=== PATIENT | male | born 1980 | race Caucasian/White ===

== ENCOUNTER 2022-07-16 10:39 | Outpatient (REF) | payer BC, SELFPAY ==
[2022-07-16 10:57] LABS: MANUAL DIFF FLAG NO
[2022-07-16 11:13] LABS: Basophils Percent Auto 0.6 % (0-2); Eosinophils Percent Auto 0.4 % (0-4); Hematocrit 49.2 % (42.0-52.0); Imm Gran Abs Auto 0.01 X10*3/uL (0.00-0.03); Imm Gran Pct Auto 0.2 % (0.0-0.4); Lymphocytes Absolute Auto 1.7 X10*3/uL (1.2-4.9); Lymphocytes Percent Auto 30.8 % (20-40); Mean Corpuscular HGB Conc 32.5 g/dl (31.0-36.0); Mean Corpuscular Hemoglobin 28.9 pg (27.0-33.0); Mean Platelet Volume 8.9 fL (9.4-12.4); Monocytes Absolute Auto 0.4 X10*3/uL (0.1-1.2); Monocytes Percent Auto 7.9 % (2-11); Neutrophils Absolute Auto 3.3 x10*3/uL (2.0-8.3); Neutrophils Percent Auto 60.1 % (45-73); Platelet Count 346 X10*3/uL (160-400); Red Blood Count 5.53 X10*6/uL (4.60-5.80); Red Cell Distribution Width 13.2 % (11.0-16.0); White Blood Count 5.4 X10*3/uL (4.8-10.8)
[2022-07-16 12:21] LABS: Amphetamine Screen Urine Not Detected (Not Detect); Barbiturates, Urine Not Detected (Not Detect); Benzodiazepines Screen Urine Not Detected (Not Detect); Cannabinoid Screen Urine POSITIVE (Not Detect); Cocaine Screen Urine Not Detected (Not Detect); Fentanyl, urine Not Detected (Not Detect); Opiate Screen Urine Not Detected (Not Detect); Phencyclidine Screen Urine Not Detected (Not Detect)
[2022-07-16 13:28] LABS: Alanine Aminotransferase 17 U/L (0-40); Alkaline Phosphatase 83 U/L (39-117); Anion Gap 13 (12-20); Aspartate Amino Transferase 17 U/L (5-37); Bilirubin Total 0.9 mg/dL (0.0-1.0); Blood Urea Nitrogen 19 mg/dL (9-16); Calcium 10.1 mg/dL (8.4-10.2); Carbon Dioxide 29 mmol/L (22-29); Chloride 103 mmol/L (96-108); Estimated Glomerular Filt Rate > 60; Ethanol < 10 mg/dL; Gamma Glutamyl Transpeptidase 24 U/L (11-51); Glucose Random 89 mg/dL (60-115); Potassium 4.3 mmol/L (3.3-5.1); Sodium 141 mmol/L (135-145); Total Protein 7.4 g/dL (6.5-8.0)
== END 2022-07-16 10:40 | disposition home or self-care (01) ==
LOC: HO.LAB 10:39
PROVIDERS: PCP Neuromusculoskeletal Medicine, Sports Medicine; Visit Provider Nurse Practitioner Psychiatric/Mental Health
DX: F10.20 Alcohol dependence, uncomplicated (principal)
CPT/HCPCS: 80053; 80307; 82077; 82977; 85025

== ENCOUNTER 2022-08-01 09:00 | Outpatient (RCR) | payer BC, SELFPAY ==
--- NOTE | 2022-07-15 13:04 | PC.NURSE ---
During patient's intake appointment with Lakshmi, Lakshmi stated patient left her office to Vomit x3. He also appeared diaphoretic. According to Lakshmi patient has a history of ETOH use and opiate use. I spoke to patient and stated I was concerned regarding his symptoms and asked if he could be detoxing from ETOH of substances. Temperature 97.0. Patient stated he has a migraine and was adamant about this. I advised patient to go to the ER to be medically cleared and he stated he did not want to go. I spoke to him about the dangers of ETOH withdrawal. He also stated he was having diarrhea and concerned about dehydration. I also consulted with Claudia Douglas the [facility] ASSISTANT STORE LEADER and Vibha the entrepreneurship program director and it was advised patient get medically cleared by his PCP or the emergency room. Patient left before I could take his BP and pulse. I called patient and left him a message regarding the need to be medically cleared and to call me back once he gets the message.
--- NOTE | 2022-07-16 08:31 | PC.NURSE ---
I spoke to Bryce this morning. He stated he slept when he got home and feels better today. Stated he does not have a migraine anymore and has not vomited since yesterday. He also stated he has IBD and ate too much yesterday thus having diarrhea. I consulted with Claudia Douglas CNP at [facility] and agreed he could start today. In addition, patient agreed to completing lab work today.
[2022-07-16 13:02] VITALS: BP 154/105; PULSE 80; TEMP 36.4
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
--- NOTE | 2022-07-16 16:00 | PC.ADMIT ---
Patient is a 41 year old single male who was referred to [facility] by his PCP d/t increased depression sxs following breakup with girlfriend. Patient reports history of ETOH use drinking 3-10 shots of whiskey or Vodka daily from [id number]. Reports being sober from ETOH since March 24, 2022. Reports he stopped, cold turkey and stated he told his PCP he was going to stop drinking as well. He reports at that time he took time off from work as he was having ETOH withdrawal sxs including feeling tired, irritable, sweating, chills. Denied any current withdrawal sxs. Denied any vomiting, nausea, no tremors, no diaphoresis. BP elevated. Patient reports his blood pressure has been high at his PCP appointments. Reviewed patient medications with Claudia GUZMAN at [facility] including Venlafaxine. Patient also stated he was taking 3 antihistamines daily for cat and dog allergies including Benadryl, Claritin, and Zyrtec. Medication education provided. Patient to start taking Zyrtec only. Patient also reports marijuana use daily vaping and smoking joints. Last use 07/14/22. Educated patient on heavy marijuana use. Patient on medication assisted tx with Naltrexone for ETOH use. Patient is alert and oriented x4. Calm and cooperative. Feeling hopeful not that he is in the program. Help seeking. He presented with depressed mood and anxious affect. Denied SI or thoughts to harm himself. Patient given a copy of his safety plan if needed. Medications reconciled with patient and patient's pharmacy. Patient reports taking medications as prescribed with the exception of over the counter medication he has been taking for his allergies. See above mentioned information.
[2022-07-16 16:15] VITALS: BMI 22.4
[2022-07-17 12:00] VITALS: BP 162/70; PULSE 88
[2022-07-17 12:15] VITALS: BP 156/72
--- NOTE | 2022-07-17 15:48 | HO.PHPIOP ---
Case opened in treatment team.
[2022-07-18 09:07] VITALS: BP 154/98; PULSE 88
--- NOTE | 2022-07-18 14:04 | HO.PHPIOP ---
I met with pt to review treatment plan and to discuss schedule and aftercare needs. Pt has a tentative plan to discharge on 08/01/22. We discussed options for support outside of [facility], including AA and other 12 step meetings, [facility] Recovery groups, [facility], and options at [employer]. I informed pt on how to access all of these. He is interested mostly in AA, and would like to have a sponsor point, and in [facility] groups. Pt took the paper copy of his treatment plan and said he would like to re-read it over the weekend before signing it, and will return it Thursday.
[2022-07-18 15:16] LABS: Amphetamine Screen Urine POSITIVE (Not Detect); Barbiturates, Urine Not Detected (Not Detect); Benzodiazepines Screen Urine Not Detected (Not Detect); Cannabinoid Screen Urine POSITIVE (Not Detect); Cocaine Screen Urine Not Detected (Not Detect); Fentanyl, urine Not Detected (Not Detect); Opiate Screen Urine Not Detected (Not Detect); Phencyclidine Screen Urine Not Detected (Not Detect)
--- NOTE | 2022-07-21 12:40 | P.PNPSP_ITS ---
Subjective Subjective Date of Service: 07/21/22 Reason For Visit: depression,ETOH abuse Medical Problems Affecting Mental Status: No Interim History: Continues with depressed mood, anxiety, but says is improving. Remains abstinent from alcohol, since 03/24/2022. Tolerating all medications well, no concerns. Finding groups helpful, learning a lot. No SI, no safety concerns. Needs [facility] paperwork completed. Medication Compliance: Yes Side effects from medications: No Attending Groups: Yes Review of Systems Acute medical concerns: No Medical Review of Systems: unchanged Review of Systems Review of Systems Yes all other systems are reviewed and are negative Constitutional: Reports no additional constitutional complaints Mental Status Exam Mental Status Exam Narrative: NAD Patient Appearance: Well Grooomed and Appropriate Patient Orientation: Person, Place, Time and Situation Level of Consciousness: Awake, Appropriate and Alert Patient Behavior: Appropriate, Cooperative and Good Eye Contact Mood Description: Depressed and Anxious Affect Description: Appropriate Patient Cognition Impaired: No Ability to Follow Directions: Excellent Speech Pattern: Clear and Appropriate Memory Description: Intact Hallucinations: None Delusions: Not Present Thought Process: Intact Thought Content: positive for Intact Depressive Symptoms: Increased Anxiety, Low Self Esteem, Loss of Energy and Difficulty Concentrating Judgement: Fair Diagnostics Vital Signs (24Hr): BMI result Body Mass Index 22.4 Assessment & Plan Assessment & Plan (1) Alcohol dependence, uncomplicated: Status: Acute Code(s): F10.20 - Alcohol dependence, uncomplicated Assessment and Plan: Continues with depressed mood, anxiety, but says is improving. Sleep good, appetite good. Remains abstinent from alcohol, since 03/24/2022. Finding groups helpful, learning a lot. Able to open up and participate, finds feedback beneficial. No SI, no safety concerns. Reports that he feels safe. (2) MDD (major depressive disorder): Qualifiers: Major depression episode severity: severe Major depression recurrence: recurrent Psychotic features: without psychotic features Status: Acute Code(s): F32.9 - Major depressive disorder, single episode, unspecified (3) Anxiety: Status: Acute Code(s): F41.9 - Anxiety disorder, unspecified (4) ADD (attention deficit disorder): Status: Acute Code(s): F98.8 - Other specified behavioral and emotional disorders with onset usually occurring in childhood and adolescence Assessment and Plan: Continues to take prescribed Adderall, no concerns. Plan 1. Continue with current [facility] plan of care. 2. Continue with current medication as prescribed by outpatient provider. 3. Follow-up as per protocol. Patient educated on: diagnosis, medication risk/benefits, substance abuse and therapeutic strategies Reason for contiued partial hosp. stay Substantial Risk for: inability to function and rapid decompensation Certification I certify that partial hospital treatment is medically necessary due to the symptoms and problems resulting from the patient's mental illness and the failure to treat the patient at the partial hospital level of care would likely result in the patient requiring inpatient psychiatric care which could not be prevented at a less intensive level of care. Total time managing care of this patient today _20___ minutes. Discharge Plan Discharge Attending provider: [facility] Medications: No Action naltrexone 50 mg tablet 1 tab PO QAM venlafaxine 150 mg capsule,extended release 24hr 1 cap PO QAM buspirone [BuSpar] 30 mg Tablet 30 mg PO BID omeprazole 20 mg capsule,delayed release(DR/EC) 1 cap PO QAM dextroamphetamine-amphetamine 10 mg capsule,extended release 24hr 1 cap PO QAM dextroamphetamine-amphetamine 5 mg tablet 1 tab PO DAILY Zyrtec 10 mg Capsule 10 mg PO DAILY
[2022-07-21 13:00] VITALS: BP 150/100; PULSE 80
--- NOTE | 2022-08-01 10:04 | P.PNPSP_ITS ---
Subjective Subjective Date of Service: 08/01/22 Reason For Visit: depression,ETOH abuse Medical Problems Affecting Mental Status: No Interim History: Describes mood as ?I am okay?, also a little anxious about finishing program. Eager to return to work. Has remain abstinent from alcohol. Less depressed. No SI, no safety concerns. Considering stopping naltrexone. Still considering trying a 12-step program. Needs return to work note. Medication Compliance: Yes Side effects from medications: No Attending Groups: Yes Review of Systems Acute medical concerns: No Medical Review of Systems: unchanged Review of Systems Review of Systems Yes all other systems are reviewed and are negative Constitutional: Reports no additional constitutional complaints Mental Status Exam Mental Status Exam Narrative: NAD Patient Appearance: Well Grooomed and Appropriate Patient Orientation: Person, Place, Time and Situation Level of Consciousness: Awake, Appropriate and Alert Patient Behavior: Appropriate, Cooperative and Good Eye Contact Mood Description: Happy and Anxious (decreased) Affect Description: Appropriate and Anxious (decreased) Patient Cognition Impaired: No Ability to Follow Directions: Excellent Speech Pattern: Clear and Appropriate Memory Description: Intact Hallucinations: None Delusions: Not Present Thought Process: Intact Thought Content: positive for Intact Depressive Symptoms: Increased Anxiety Judgement: Good Diagnostics Vital Signs (24Hr): BMI result Body Mass Index 22.4 Assessment & Plan Assessment & Plan (1) Alcohol dependence, uncomplicated: Status: Acute Code(s): F10.20 - Alcohol dependence, uncomplicated Assessment and Plan: Reports he has been able to maintain abstinence throughout program. Considering stopping naltrexone. Medication education provided, discussion regarding indications of use, side effects both common in more severe. Discussed having support network in place and [facility] in sobriety prior to stopping the medication. He stated that he would consider this. He has not yet attended any type of community support group. Still considering. Encouraged to reach out and find a program where he feels comfortable. (2) MDD (major depressive disorder): Qualifiers: Major depression recurrence: recurrent Major depression episode severity: severe Psychotic features: without psychotic features Status: Acute Code(s): F32.9 - Major depressive disorder, single episode, unspecified Assessment and Plan: Reports overall less depressed. I feel stable for discharge, looking forward to returning to work. No SI/HI, no safety concerns. Feels current medication regimen is working well. (3) Anxiety: Status: Acute Code(s): F41.9 - Anxiety disorder, unspecified Assessment and Plan: Continues with some anxiety, overall much improved. Feels program has been helpful. Plan 1. Patient appears stable for discharge from [facility] at this time. 2. Patient to follow-up with outpatient providers going forward. Patient educated on: diagnosis, medication risk/benefits, substance abuse and therapeutic strategies Informed Consent: understands Reason for contiued partial hosp. stay Substantial Risk for: stable for discharge Certification I certify that partial hospital treatment is medically necessary due to the symptoms and problems resulting from the patient's mental illness and the failure to treat the patient at the partial hospital level of care would likely result in the patient requiring inpatient psychiatric care which could not be prevented at a less intensive level of care. Total time managing care of this patient today ___20_ minutes. Discharge Plan Discharge Attending provider: [facility] Medications: No Action naltrexone 50 mg tablet 1 tab PO QAM venlafaxine 150 mg capsule,extended release 24hr 1 cap PO QAM buspirone [BuSpar] 30 mg Tablet 30 mg PO BID omeprazole 20 mg capsule,delayed release(DR/EC) 1 cap PO QAM dextroamphetamine-amphetamine 10 mg capsule,extended release 24hr 1 cap PO QAM dextroamphetamine-amphetamine 5 mg tablet 1 tab PO DAILY Zyrtec 10 mg Capsule 10 mg PO DAILY Stand Alone Forms: Patient Portal Discharge page Patient Education: Depression (DC), Anxiety (ED), Alcohol Dependence (ED)
== END 2022-08-01 23:59 | disposition home or self-care (01) ==
LOC: HO.PHPA 09:00
PROVIDERS: Nurse Practitioner Psychiatric/Mental Health; Visit Provider Psychiatry & Neurology Psychiatry
DX: F33.2 Major depressive disorder, recurrent severe without psychotic features (principal); F10.20 Alcohol dependence, uncomplicated; F41.9 Anxiety disorder, unspecified; F98.8 Other specified behavioral and emotional disorders with onset usually occurring in childhood and adolescence
CPT/HCPCS: 80307; 90791; 90853